=== PATIENT | male | born 1985 | race Two or more races ===

== ENCOUNTER 2018-02-28 15:44 | Emergency (ER) | payer SELFPAY ==
[2018-02-28] MEDS ORDERED: FLUORESCEIN 1MG EYE STRIP. OU (16:15)
[2018-02-28] MEDS: FLUORESCEIN OPHTH TEST STRIP. OU (16:30)
[2018-02-28] MEDS: TETRACAINE 0.5% OPHTH SOLUTION 4ML BOTTLE. OU (16:30)
[2018-02-28] MEDS: DIPHTH,PERTUSS(ACELL),TET TOX 0.5 ML DISP.SYRIN. VAX IM (16:47)
== END 2018-02-28 17:30 | disposition home or self-care (01) ==
LOC: ER 15:44
DX: S05.01XA Injury of conjunctiva and corneal abrasion without foreign body, right eye, initial encounter (principal); W22.8XXA Striking against or struck by other objects, initial encounter; Y93.89 Activity, other specified; Y99.8 Other external cause status; Y92.89 Other specified places as the place of occurrence of the external cause
CPT/HCPCS: 90471; 90715; 99283-25